=== PATIENT | male | born 1985 | race Caucasian/White ===

== ENCOUNTER 2022-06-24 21:41 | Emergency (ER) | payer OTHER ==
[~2022-06-24 21:41] MED LIST: MOTRIN600 MG PO
[2022-06-24 23:02] LABS: BASOPHIL 0.2 % (0-2); EOSINOPHIL 3.3 % (0-5); HCT 42.3 % (42.0-52.0); HGB 14.4 g/dl (13.2-18.0); LYMPHOCYTE 24.2 % (15-48); MCH 29.6 pg (25.0-31.0); MONOCYTE 8.2 % (0-12); MPV 8.7 fL (6.0-9.5); NEUTROPHIL 63.5 % (41-80); NRBC 0; PLT 169 K/uL (150-400); RBC 4.86 M/uL (4.70-6.00); RDW 12.5 % (11.5-14.0); WBC 5.1 K/uL (4.0-10.5)
[2022-06-24 23:18] LABS: ALBUMIN 3.9 g/dL (3.4-5.0); BILIRUBIN - TOTAL 0.5 mg/dL (0.2-1.0); BUN/CREAT RATIO (CALC) 12.8 RATIO; CREATININE 0.94 mg/dL (0.67-1.17); GLOBULIN (CALCULATION) 3.5 g/dL; POTASSIUM 3.9 mmol/L (3.5-5.1); TOTAL PROTEIN 7.4 g/dL (6.4-8.2)
== END 2022-06-24 23:47 | disposition home or self-care (01) ==
LOC: FER 21:41
PROVIDERS: Emergency Medicine
DX: R00.2 Palpitations (principal); R53.83 Other fatigue; F17.200 Nicotine dependence, unspecified, uncomplicated; Z88.2 Allergy status to sulfonamides; Z88.1 Allergy status to other antibiotic agents; Z28.310 Unvaccinated for COVID-19
CPT/HCPCS: 36415; 80053; 84484; 85025; 93005; J7030